=== PATIENT | female | born 1950 | race Hispanic/Latino ===

== ENCOUNTER 2024-03-15 14:47 | Outpatient (CLI) | payer MEDICARE, MEDICAID ==
[~2024-03-15 14:47] MED LIST: Iopamidol 370 76% 100 ML VIAL ONE
== END 2024-03-15 14:48 | disposition home or self-care (01) ==
LOC: CSHCT 14:47
PROVIDERS: ATTEND Family Medicine
DX: R79.1 Abnormal coagulation profile (principal)
CPT/HCPCS: 71275; 82565; Q9967

== ENCOUNTER 2024-07-26 09:42 | Outpatient (CLI) | payer MEDICARE, MEDICAID | END 2024-07-26 09:43 | disposition home or self-care (01) | LOC: CSHMRI 09:42 | PROVIDERS: ATTEND Family Medicine | DX: M47.816 Spondylosis without myelopathy or radiculopathy, lumbar region (principal); M51.369 Other intervertebral disc degeneration, lumbar region without mention of lumbar back pain or lower extremity pain; M48.061 Spinal stenosis, lumbar region without neurogenic claudication | CPT/HCPCS: 72148 ==

== ENCOUNTER 2024-08-29 08:10 | Outpatient (CLI) | payer MEDICARE, MEDICAID | END 2024-08-29 08:11 | disposition home or self-care (01) | LOC: CSHMRI 08:10 | PROVIDERS: ATTEND Surgery | DX: M48.04 Spinal stenosis, thoracic region (principal); M47.814 Spondylosis without myelopathy or radiculopathy, thoracic region; M47.815 Spondylosis without myelopathy or radiculopathy, thoracolumbar region; M47.812 Spondylosis without myelopathy or radiculopathy, cervical region; M47.816 Spondylosis without myelopathy or radiculopathy, lumbar region | CPT/HCPCS: 72146 ==

== ENCOUNTER 2024-10-14 14:28 | Emergency (ER) | payer MEDICARE, MEDICAID ==
[2024-10-14] MEDS ORDERED: Ondansetron PF 4 MG/2 ML Vial ONE (15:07)
[2024-10-14 15:29] LABS: #Basophils 0.05 10x3/uL (0.0-0.2); #Eosinophils 0.19 10x3/uL (0.0-0.5); #Monocytes 0.49 10x3/uL (0.0-1.1); #Neutrophils 6.78 10x3/uL (1.5-8.4); %Basophils 0.5 % (0.0-2.0); %Eosinophils 1.9 % (0.0-6.0); %Lymphocytes 23.7 % (18.0-47.0); %Neutrophils 68.5 % (40.0-75.0); Hematocrit 41.6 % (34.9-44.5); Hemoglobin 13.3 g/dL (12.0-15.5); Mean Corpuscular Hemoglobin 31.3 pg (27.0-33.0); Mean Corpuscular Volume 97.9 fL (81.6-98.3); Mean Platelet Volume 9.3 fL (7.4-10.4); Platelet Count 422 10x3/uL (150-450); RBC Distribution Width 13.5 % (11.5-14.5); Red Blood Cell (RBC) Count 4.25 10x6/uL (3.90-5.03); White Blood Cell (WBC) Count 9.9 10x3/uL (3.5-10.5)
[2024-10-14 15:51] LABS: Troponin I Less than 0.010 ng/mL (< 0.028)
[2024-10-14 15:52] LABS: ALT (SGPT) 23 U/L (8-55); AST (SGOT) 22 U/L (5-34); Albumin 3.8 g/dL (3.4-4.8); Alkaline Phosphatase 96 U/L (40-110); Anion Gap 17 mmol/L (10-20); BUN (Urea Nitrogen) 21 mg/dL (9.8-20.1); Bilirubin, Total 0.3 mg/dL (0.2-1.2); Calc. Creatinine Clearance 0 mL/min (70-130); Calcium 9.9 mg/dL (7.8-10.44); Carbon Dioxide 21 mmol/L (23-31); Chloride 107 mmol/L (98-107); Estimated GFR 56; Globulin 3.9 g/dL (2.4-3.5); Glucose 225 mg/dL (83-110); Lipase 19 U/L (8-78); Magnesium 2.2 mg/dL (1.6-2.6); Protein, Total 7.7 g/dL (5.8-8.1); Sodium 141 mmol/L (136-145)
[2024-10-14] MEDS ORDERED: Meclizine HCl 25 MG TAB ONE (16:12)
[2024-10-14 16:38] LABS: Bilirubin Neg (Negative); Blood, Urine 10 (Negative); Clarity Slightly Cloudy (Clear); Glucose, Urine (Dipstick) >=1000 mg/dL (Negative); Ketone, Urine Negative (Negative); Leukocyte 25 (Negative); Nitrite Negative (Negative); Protein, Urine (Dipstick) 15 mg/dl (Neg-Trace); Specific Gravity, Urine 1.015 (1.005-1.030); Urobilinogen Normal mg/dL (Less than 2)
[2024-10-14 16:57] LABS: CAUTI Indications for Culture Alt mental st,lethar; RBC/HPF 0-3 HPF (0-3)
[2024-10-14 16:58] LABS: Bacteria/HPF 2+ HPF (None Seen); Squamous Epithelial 0-3 HPF (0-3)
[2024-10-14 16:59] LABS: Urine Culture Reflex No No
== END 2024-10-14 16:28 | disposition home or self-care (01) ==
LOC: CSHERS 14:28
DX: R42 Dizziness and giddiness (principal); R11.0 Nausea; R29.700 NIHSS score 0; E11.9 Type 2 diabetes mellitus without complications; I10 Essential (primary) hypertension; E78.5 Hyperlipidemia, unspecified; E03.9 Hypothyroidism, unspecified; M19.90 Unspecified osteoarthritis, unspecified site; Z87.891 Personal history of nicotine dependence
CPT/HCPCS: 70450; 80053; 81001; 83690; 83735; 84484; 85025; 93005; J2405; 93010; 96374

== ENCOUNTER 2024-10-27 20:51 | Emergency (ER) | payer MEDICARE, MEDICAID | END 2024-10-28 00:34 | disposition home or self-care (01) | LOC: CSHERS 20:51 | DX: D78 Intraoperative and postprocedural complications of the spleen (principal); E11.9 Type 2 diabetes mellitus without complications; Z87.891 Personal history of nicotine dependence | CPT/HCPCS: 87070; 87077; 87205; 99284 ==